=== PATIENT | female | born 1985 | race Caucasian/White ===

== ENCOUNTER → 2021-11-28 07:53 | Outpatient (CLI) | payer OTHER, SELFPAY ==
--- NOTE | ~2021-11-28 | US_ITS ---
EXAMINATION: US abdomen limited EXAM DATE: 11/28/2021 08:43 INDICATION: Umbilical hernia without obstruction and without gangrene. TECHNIQUE: Frontal upright projection of the upper abdomen, frontal projection of the lower abdomen f or interpretation. There is no prior study for comparison. FINDINGS: Suspicion of small fat-containing hernia identified annotated umbilical area of pain. Nonco ntrast CT would be confirmatory if indicated clinically. IMPRESSION: Suspicion of small umbilical fat-containing hernia. Reviewed, dictated and finalized at location G. [place] SUPPORT MANAGER
== END ==
PROVIDERS: PCP Nurse Practitioner; Visit Provider Nurse Practitioner
DX: K42.9 Umbilical hernia without obstruction or gangrene (principal)
CPT/HCPCS: 76705

== ENCOUNTER 2023-10-11 11:26 | Outpatient (CLI) | payer OTHER, SELFPAY ==
--- NOTE | 2023-10-11 15:32 | ECG_ITS ---
Measurements Intervals [place] Rate: 64 P: 61 MT: 193 QRS: -27 QRSD: 113 T: 61 QT: 427 QTc: 443 Interpretive Statements SINUS RHYTHM INCOMPLETE RIGHT BUNDLE BRANCH BLOCK DELAYED PRECORDIAL R/S TRANSITION BORDERLINE ECG NO PREVIOUS ECG AVAILABLE FOR COMPARISON Electronically Signed On 10-11-2023 15:54:51 INTERVENTION NURSE by Mathew Lorenzo D.O.
== END 2023-10-11 11:27 | disposition home or self-care (01) ==
PROVIDERS: PCP Physician Assistant Medical; Visit Provider Surgery
DX: I10 Essential (primary) hypertension (principal); Z01.818 Encounter for other preprocedural examination; I45.10 Unspecified right bundle-branch block
CPT/HCPCS: 93005

== ENCOUNTER 2024-04-09 09:39 | Outpatient (CLI) | payer OTHER, SELFPAY ==
--- NOTE | ~2024-04-09 | US_ITS ---
EXAMINATION: US soft tissue LE RT DATE: 04/09/2024 10:07 INDICATION: SUBCUTANEOUS MASS . TECHNIQUE: Grayscale and Doppler ultrasound images of the subcutaneous tissues of the right medial kn ee were obtained. COMPARISON: None. FINDINGS: Sonographic interrogation of the area of clinical concern revealed a 6.9 x 5.7 x 3.0 cm, sm oothly marginated, bilobed, masslike area, slightly hyperechoic relative to surrounding subcutaneous fat, with minimal internal vascularity. IMPRESSION: 6.9 cm subcutaneous right medial knee mass, likely lipoma. Recommend surgical referral for potential resection based on size. Reviewed, dictated and finalized at location K. IMPRESSION: 6.9 cm subcutaneous right medial knee mass, likely lipoma. Recommend surgical r eferral for potential resection based on size.
== END 2024-04-09 09:40 ==
LOC: GOSHIMG 09:42
PROVIDERS: PCP Nurse Practitioner Family
DX: R22.41 Localized swelling, mass and lump, right lower limb (principal)
CPT/HCPCS: 76882

== ENCOUNTER 2025-06-04 08:00 | Outpatient (CLI) | payer OTHER, SELFPAY ==
--- NOTE | ~2025-06-04 | CT_ITS ---
EXAMINATION: CT sinus wo con DATE: 06/04/2025 08:28 INDICATION: Chronic pansinusitis TECHNIQUE: Computed tomography (CT) of the paranasal sinuses was performed without intravenous contra st. The dose-length product was 273.81 mGy-cm. Automated exposure control and iterative reconstruction technique were employed. COMPARISON: CT dated 05/12/2016 FINDINGS: There is mild mucosal thickening of the maxillary and ethmoid sinuses. No air-fluid levels. No significant nasal septal deviation. There are surgical changes consistent with bilateral resectio n of the ostiomeatal units. No mucoperiosteal reaction. No midline shift. Mastoids are pneumatized. IMPRESSION: 1. Mild sinus disease. Reviewed, dictated and finalized at location A. IMPRESSION: 1. Mild sinus disease.
== END 2025-06-04 08:01 | disposition home or self-care (01) ==
PROVIDERS: PCP Nurse Practitioner Family
DX: J32.4 Chronic pansinusitis (principal)
CPT/HCPCS: 70486